=== PATIENT | male | born 1985 | race Caucasian/White ===

== ENCOUNTER 2017-01-04 00:34 | Emergency (ER) | payer OTHER ==
[~2017-01-04 00:34] MED LIST: ALBUTEROL17 G1 IH; ALBUTEROL17 GM INH; ALPRAZOLAM PO; AMOXICILLIN500 M1 PO; BACTRIM DS TABL1 TA1 PO; CARAFATE; CARAFATE1 G PO; CARAFATE1 GM PO; CENTRUM PO; CLARINEX5 M1; CLARINEX5 M1 PO; DEPAKOTE PO; DICLOFENAC PO; DOXEPIN PO; FLEXERIL10 M1 PO; FLEXERIL10 MG PO; IBUPROFEN600 MG PO; KEFLEX PO; KETOPROFEN PO; KLONOPIN1 MG; KLONOPIN1 MG PO; LITHIUM PO; MOBIC PO; MULTI VITAMIN1 EACH PO; NAPROSYN500 MG PO; NEURONTIN PO; NEURONTIN300 MG PO; NEURONTIN600 MG PO; NEXIUM PO; NEXIUM20 MG PO; NO MEDICATIONS; PEN-VEE K PO; PHENERGAN W/CO120 ML PO; PHENERGAN25 M1 PO; PRILOSEC20 MG PO; PROVENTIL17 GM IH; REGLAN PO; SKELAXIN PO; THORAZINE25 MG PO; TUSSIONEX PENN473 ML; TUSSIONEX PENN473 ML PO; TUSSIONEX PENN480 ML PO; ULTRAM PO; VIBRAMYCIN100 M1 PO; VICODIN 5/1 TAB 5/50 PO; VICODIN 5/500 T1 TAB PO; VOLTAREN75 MG PO; ZITHROMAX PO
== END 2017-01-04 02:23 | disposition home or self-care (01) ==
LOC: SED 00:34
DX: J20.9 Acute bronchitis, unspecified (principal); J06.9 Acute upper respiratory infection, unspecified; F17.200 Nicotine dependence, unspecified, uncomplicated; F41.9 Anxiety disorder, unspecified; Z88.8 Allergy status to other drugs, medicaments and biological substances; Z88.5 Allergy status to narcotic agent; Z88.1 Allergy status to other antibiotic agents
CPT/HCPCS: 87651; 99282